=== PATIENT | female | born 1940 | race Caucasian/White ===

== ENCOUNTER 2016-05-20 12:33 | Emergency (ER) | payer MEDICARE, BC ==
[2016-05-20] MEDS ORDERED: ALTEPLASE IV ONE (12:54)
[2016-05-20] MEDS ORDERED: ALTEPLASE IVPB ONE (12:54)
[2016-05-20 13:02] LABS: Hematocrit 44 % (35-47); Hemoglobin 14.3 g/dl (12.0-16.0); Mean Corpuscular HGB Conc 33 g/dl (31-36); Mean Corpuscular Hemoglobin 28 pg (27-31); Mean Corpuscular Volume 87 fL (80-97); Mean Platelet Volume 9 um3 (7.4-10.4); Red Blood Count 5.05 10^6/ul (4.0-5.4); Red Cell Distribution Width 16 % (10.5-15); White Blood Count 7.4 10^3/ul (3.5-10.8)
--- NOTE | 2016-05-20 13:04 | RAD ---
HISTORY: Neurological changes, code escobar COMPARISONS: MRI dated January 02, 2016 TECHNIQUE: Multiple contiguous axial CT scans were obtained of the head without intravenous contrast. FINDINGS: HEMORRHAGE/INFARCT: There is no hemorrhage or acute infarct. MASSES/SHIFT: There is no parenchymal mass or shift. EXTRA-AXIAL SPACES: There is an extra axial mass along the left cerebral hemisphere consistent with meningioma. This can be identified on the previous examination and is stable. There is no significant mass effect. SULCI AND VENTRICLES: The sulci and ventricles are normal in size and position for the patient's stated age. CEREBRUM: There is hypoattenuation of the periventricular and subcortical white matter. There is encephalomalacia of the right frontal lobe consistent with remote infarct. There is a smaller area of encephalomalacia of the left frontal lobe consistent with remote. BRAINSTEM: There are no focal parenchymal abnormalities. CEREBELLUM: There are no focal parenchymal abnormalities. VESSELS: There is increased density of the left internal carotid artery compared to the right. PARANASAL SINUSES: The paranasal sinuses are clear. ORBITS: The orbits are unremarkable. BONES AND SOFT TISSUE: No bone or soft tissue abnormalities are noted. OTHER: None IMPRESSION: 1. THERE IS INCREASED DENSITY OF THE LEFT ICA WHICH MAY REFLECT THROMBOSIS. 2. CHRONIC SMALL VESSEL ISCHEMIC CHANGES. 3. MULTIFOCAL ENCEPHALOMALACIA CONSISTENT WITH REMOTE INFARCT. 4. STABLE LEFT POSTERIOR FOSSA MENINGIOMA. 5. PRELIMINARY FINDINGS WERE DISCUSSED WITH DR. FUNK IN THE EMERGENCY DEPARTMENT AT APPROXIMATELY 1 P.M. ON MAY 12, 2016.
[2016-05-20 13:21] LABS: Urine Bilirubin Negative (Negative); Urine Glucose Negative (Negative); Urine Nitrite Negative (Negative)
[2016-05-20 13:26] LABS: Albumin 4.2 g/dL (3.2-5.2); BUN/Creatinine Ratio 28.7 (8-20); Calcium 9.3 mg/dL (8.6-10.3); EGFR African American 81.6 (>60); EGFR Non-African American 63.5 (>60); Globulin 2.5 g/dL (2-4); HDL Cholesterol 74.1 mg/dL; Potassium 4.2 mmol/L (3.5-5.0); Total Bilirubin 0.4 mg/dL (0.2-1.0); Total Protein 6.7 g/dL (6.4-8.9)
[2016-05-20] MEDS ORDERED: Iohexol 350* (CONTRAST) 500 ML MDV IV ONE (13:29)
--- NOTE | 2016-05-20 13:40 | RAD ---
INDICATION: Code laboy COMPARISON: December 31, 2015 TECHNIQUE: An AP portable view obtained at 1315 hours is submitted. FINDINGS: Bones/Soft Tissues: There are no acute bony findings. There is a scoliotic deformity Cardiomediastinal: The cardiomediastinal silhouette is normal. Lungs: There are no infiltrates. Pleura: There are no pleural effusions. Other: None IMPRESSION: NO ACTIVE DISEASE.
[2016-05-20] MEDS ORDERED: NS 0.9% 500 ML BAG* 500 ML IV SCH (14:00)
[2016-05-20] MEDS ORDERED: NS 0.9% 500 ML BAG* 500 ML IV ONE ×2 (14:00)
--- NOTE | 2016-05-20 14:22 | RAD ---
HISTORY: Aphasia COMPARISONS: Head CT dated May 20 2016, CTA dated June 17, 2011 TECHNIQUE: Multiple contiguous axial CT scans were obtained of the head and neck After the administration of nonionic intravenous contrast timed to the systemic arterial phase of contrast enhancement. Coronal and sagittal multiplanar reformations are submitted for review. Multiple 3-D maximum intensity projection reconstructions are also submitted for review. FINDINGS: CTA NECK: AORTIC ARCH: The left vertebral artery is from the aortic arch. There is no ostial or proximal stenosis of the cephalic great vessels. RIGHT VERTEBRAL ARTERY: The right vertebral artery is patent along its course, without stenosis. LEFT VERTEBRAL ARTERY: The left vertebral artery is patent along its course, without stenosis. DOMINANCE: The right vertebral artery is dominant. RIGHT COMMON CAROTID ARTERY: The right common carotid artery is patent. The right carotid bifurcation occurs at C5-C6 RIGHT INTERNAL CAROTID ARTERY: There is no right internal carotid artery stenosis by NASCET criteria. RIGHT EXTERNAL CAROTID ARTERY: The right external carotid artery is unremarkable. LEFT COMMON CAROTID ARTERY: The left common carotid artery is patent. The left carotid bifurcation occurs at C 67 LEFT INTERNAL CAROTID ARTERY: There is no left internal carotid artery stenosis by NASCET criteria. The suspected left ICA stenosis noted on CT is not evident on the current contrast enhanced examination. LEFT EXTERNAL CAROTID ARTERY: The left external carotid artery is unremarkable. VENOUS CIRCULATION: The venous system is unremarkable. SALIVARY GLANDS: The parotid glands, submandibular glands, sublingual glands are normal. NASAL CAVITY/NASOPHARYNX: The nasal cavity and nasopharynx are normal. ORAL CAVITY/OROPHARYNX: The oral cavity is obscured by streak artifact from dental amalgam. The visualized oral cavity and oropharynx are unremarkable. LARYNGEAL APPARATUS/HYPOPHARYNX: The laryngeal apparatus and hypopharynx are normal. UPPER AIRWAY/UPPER ESOPHAGUS: The visualized upper airway and esophagus are normal. LUNG APICES: The lung apices are clear. THYROID GLAND: The thyroid gland is normal. LYMPH NODES: There is no lymphadenopathy by size criteria. BONES AND SOFT TISSUES: Degenerative changes are noted of the spine CTA HEAD: INTRACRANIAL CIRCULATION: There is no aneurysm, vascular malformation, occlusion, or stenosis of the visualized intracranial circulation. The anterior communicating artery complex is clear. Bilateral posterior communicating arteries are identified. The anterior communicating artery complex is dominant over the A1 segment of the right anterior cerebral artery. VENOUS CIRCULATION: The venous system is unremarkable. PERFUSION: There is no obvious parenchymal perfusion deficit. HEMORRHAGE/INFARCT: There is no hemorrhage or acute infarct. MASSES/SHIFT: There is no mass or shift. EXTRA-AXIAL SPACES: There are no extra-axial fluid collections. SULCI AND VENTRICLES: The sulci and ventricles are normal in size and position for the patient's stated age. CEREBRUM: Again noted are remote infarcts of the right frontal lobe and left frontal lobe with chronic small vessel ischemic changes. BRAINSTEM: There are no focal parenchymal abnormalities. CEREBELLUM: There are no focal parenchymal abnormalities. PARANASAL SINUSES: The paranasal sinuses are clear. ORBITS: The orbits are unremarkable. BONES AND SOFT TISSUE: No bone or soft tissue abnormalities are noted. OTHER: There is no abnormal enhancement. IMPRESSION: 1. NO INTERNAL CAROTID ARTERY STENOSIS BY NASCET CRITERIA. 2. NO ANEURYSM, VASCULAR MALFORMATION, OCCLUSION, OR STENOSIS OF THE VISUALIZED INTRACRANIAL CIRCULATION.. 3. AGAIN NOTED ARE CHRONIC ISCHEMIC CHANGES AND REMOTE INFARCTS CPT II Codes: 3100F
--- NOTE | 2016-05-20 15:32 | ED ---
Alejandro Walls Adam, scribed for Shaun Funk MD on 05/20/16 at 1304 . Neurological HPI - HPI Summary HPI Summary: Pt is a 76 year old female presenting with AMS. The pt is alert but aphasic and unable to follow commands. According to EMS the pt was found to be having noticeable cognitive changes at 11:00 this morning. They planned to take her to her PCP but the symptoms grew worse so they called EMS. The pt has difficulty following directions and finding words. She seems to indicate that she does have a typical migraine right now of which she has a Hx. She also has positive Hx of CVA and seizure. - History of Current Complaint Chief Complaint: EDNeurologicalDeficit Stated Complaint: AMS Time Seen by Provider: 05/20/16 12:35 Hx Obtained From: EMS Hx From Patient Unobtainable Due To: Altered Mental Status - Level 5 Caveat due to AMS Onset/Duration: Sudden Onset, Started hours ago, Still Present Timing: Constant Onset Severity: Moderate Current Severity: Moderate Neurological Deficit Location: E, [facility] Character: Impaired Speech, Confusion Aggravating: Unknown Alleviating: Nothing Associated Signs and Symptoms: Positive: AMS - Additional Pertinent History Primary Care Physician: [id number] - Allergy/Home Medications Allergies/Adverse Reactions: Allergies Allergy/AdvReac Type Severity Reaction Status Date / Time Koroma Flavor Allergy Unknown MIGRAINES Verified 05/20/16 13:06 Chocolate Allergy Unknown MIGRAINES Verified 05/20/16 13:06 Cinnamon Allergy Unknown MIGRAINES Verified 05/20/16 13:06 Eggs or Egg-derived Products Allergy Unknown MIGRAINES Verified 05/20/16 13:06 Erythromycin Allergy Unknown MIGRAINES Verified 05/20/16 13:06 Meperidine [From Demerol HCl] Allergy Unknown MIGRAINES Verified 05/20/16 13:06 Raloxifene [From Evista] Allergy Unknown MIGRAINES Verified 05/20/16 13:06 Sulfa Drugs Allergy Unknown MIGRAINES Verified 05/20/16 13:06 Tomato Allergy Unknown Headache Verified 05/20/16 13:06 almond Allergy Unknown Headache Uncoded 05/20/16 13:06 FOOD IN CASINGS (ex : Allergy Unknown MIGRAINES Uncoded 05/20/16 13:06 sausage) Home Medications: Home Medications Aspirin EC Low Dose* [Ecotrin EC Low Dose 81 MG*] 81 mg PO DAILY 05/20/16 [ History Confirmed 05/20/16] Clobetasol Propionate 0.05 % TOPICAL BID PRN 05/20/16 [History Confirmed ] Divalproex Sodium [Depakote] 250 mg PO BEDTIME 05/20/16 [History Confirmed 05/20] Glonoinum 30 3 cap PO DAILY PRN 05/20/16 [History Confirmed 05/20/16] Glucosamine Sulfate 1,500 mg PO QAM 05/20/16 [History Confirmed 05/20/16] HYDROmorphone SUPP* [Dilaudid SUPP*] 3 mg AR Q6HR PRN 05/20/16 [History Confirmed 05/20/16] Hydrocortisone (Rectal) [Proctozone-Hc] 2.5 % AR BID PRN 05/20/16 [History Confirmed 05/20/16] Ibuprofen TAB* [Advil TAB*] 400 mg PO Q4HR PRN 05/20/16 [History Confirmed 05/20] Levothyroxine TAB* [Synthroid TAB*] 50 mcg PO DAILY 05/20/16 [History Confirmed 05/20/16] Magnesium Citrate (mg Suppleme [Magnesium Citrate] 150 mg PO BEDTIME 05/20/16 [ History Confirmed 05/20/16] Ondansetron ODT TAB* [Zofran 4 MG Odt TAB*] 4 mg PO Q2HR PRN MDD 8 mg 05/20/16 [ History Confirmed 05/20/16] Prasterone (Dhea) [Dhea] 10 mg PO DAILY 05/20/16 [History Confirmed 05/20/16] Verapamil TAB* [Calan TAB*] 120 mg PO DAILY 05/20/16 [History Confirmed 05/20/16 ] predniSONE TAB* [Deltasone TAB*] 20 mg PO DAILY 05/20/16 [History Confirmed ] PMH/Surg Hx/FS Hx/Imm Hx Endocrine/Hematology History: Reports: Hx Thyroid Disease - hypothyroid Denies: Hx Anticoagulant Therapy, Hx Blood Disorders, Hx Blood Transfusions, Hx Bone Marrow Disease, Hx Diabetes, Hx Systemic Lupus Erythematosus, Hx Sickle Cell Disease, Hx Anemia, Hx Unexplained Bleeding, Other Endocrine/Hematological Disorders Cardiovascular History: Denies: Hx Hypertension, Hx Pacemaker/ICD, Other Cardiovascular Problems/ Disorders Respiratory History: Reports: Hx Asthma - exercise induced, Hx Seasonal Allergies - box elder, white birch Denies: Hx Chronic Bronchitis, Hx Chronic Obstructive Pulmonary Disease (COPD ), Hx Cystic Fibrosis, Hx Lung Cancer, Hx Pleural Effusion, Hx Pneumonia, Hx Pulmonary Edema, Hx Pulmonary Embolism, Hx Sleep Apnea, Other Respiratory Problems/Disorders GI History: Reports: Hx Gastroesophageal Reflux Disease Denies: Other GI Disorders History: Denies: Hx Dialysis, Hx Renal Disease, Other Problems/Disorders Musculoskeletal History: Reports: Hx Back Problems - occasional, comes and goes. , Hx Orthopedic Injury - Sx left knee 1979, Hx Osteoporosis, Hx Scoliosis, Other Musculoskeletal History - knee sx Denies: Hx Arthritis, Hx Rheumatoid Arthritis, Hx Bursitis, Hx Congenital Bone Abnormalities, Hx Fibromyalgia, Hx Gout, Hx Tendonitis Sensory History: Reports: Hx Cataracts - Sx on both eyes corrected it., Hx Contacts or Glasses - Doesn't have them with her, though, Hx Macular Degeneration Denies: Hx Eye Injury, Hx Eye Prosthesis, Hx Glaucoma, Hx Vision Problem, Hx Deafness, Hx Hearing Aid, Hx Hearing Problem, Other Sensory Impairments Opthamlomology History: Reports: Hx Cataracts - Sx on both eyes corrected it., Hx Contacts or Glasses - Doesn't have them with her, though, Hx Macular Degeneration Denies: Hx Eye Injury, Hx Eye Prosthesis, Hx Glaucoma, Hx Vision Problem, Other Sensory Impairments Neurological History: Reports: Hx Migraine, Hx Transient Ischemic Attacks (TIA) , Other Neuro Impairments/Disorders - MIGRAINES Denies: Hx Dementia, Hx Developmental Delay, Hx Headaches, Hx Seizures, Hx Spinal Cord Injury Psychiatric History: Reports: Hx Depression - brief, 10-20 years ago Denies: Hx Anxiety, Hx Attention Deficit Hyperactivity Disorder, Hx Eating Disorder, Hx Panic Disorder, Hx Post Traumatic Stress Disorder, Hx Inpatient Treatment, Hx Community Mental Health Tx, Hx Schizophrenia, Hx Bipolar Disorder , Hx Suicide Attempt, Hx Substance Abuse, Other Psychiatric Issues/Disorders - Cancer History Cancer Type, Location and Year: SKIN CA, migraines - Surgical History Surgery Procedure, Year, and Place: bladder . twisted fallopian tube surgery 1966. left knee 1979. cataract -2008. melonoma removed -left arm- 2011. HEMORROIDECTOMY -1997 Hx Anesthesia Reactions: No Infectious Disease History: No Infectious Disease History: Denies: Hx Tuberculosis, History Other Infectious Disease, Traveled Outside the [place] in Last 30 Days - Family History Known Family History: Positive: Other Family History: No FHx breast cancer. No FHx osteoarthritis. - Social History Occupation: Retired Lives: With Family - Alcohol Use: None Hx Substance Use: No Substance Use Type: Reports: None Hx Tobacco Use: No Smoking Status (MU): Never Smoked Tobacco Review of Systems Negative: Fever Neurological: Other - AMS, difficulty following directions and finding words Positive: Headache All Other Systems Reviewed And Are Negative: Yes - Comments Additional Review of Systems Comments: Level 5 Caveat due to AMS Physical Exam Triage Information Reviewed: Yes Vital Signs On Initial Exam: Initial Vitals Temp Pulse Resp BP Pulse Ox 98.1 F 57 14 117/47 98 05/20/16 12:52 05/20/16 12:52 05/20/16 12:52 05/20/16 12:52 05/20/16 12:52 Vital Signs Reviewed: Yes Completion Of Physical Exam Limited Due To: Level 5 - AMS Appearance: Positive: Well-Appearing, No Pain Distress Skin: Positive: Warm, Skin Color Reflects Adequate Perfusion, Dry Head/Face: Positive: Normal Head/Face Inspection Eyes: Positive: EOMI, YOEL ENT: Positive: Normal ENT inspection Neck: Positive: Supple, Nontender Respiratory/Lung Sounds: Positive: Clear to Auscultation, Breath Sounds Present Cardiovascular: Positive: RRR Abdomen Description: Positive: Nontender, Soft Bowel Sounds: Positive: Present Musculoskeletal: Positive: Normal, Strength/ROM Intact Neurological: Positive: Other - Severe aphasia. See NIH stroke scale. Psychiatric: Positive: Affect/Mood Appropriate Diagnostics - Vital Signs Vital Signs Temp Pulse Resp BP Pulse Ox 05/20/16 12:52 98.1 F 57 14 117/47 98 - Laboratory Lab Results: Lab Results 05/20/16 05/20/16 05/20/16 Range/Units 12:57 12:57 12:57 WBC 7.4 (3.5-10.8) 10^3/ul RBC 5.05 (4.0-5.4) 10^6/ul Hgb 14.3 (12.0-16.0) g/dl Hct 44 (35-47) % MCV 87 (80-97) fL MCH 28 (27-31) pg MCHC 33 (31-36) g/dl RDW 16 H (10.5-15) % Plt Count 213 (150-450) 10^3/ul MPV 9 (7.4-10.4) um3 Neut % (Auto) 42.7 (38-83) % Lymph % (Auto) 47.1 H (25-47) % [place] % (Auto) 8.4 (1-9) % Eos % (Auto) 1.4 (0-6) % Baso % (Auto) 0.4 (0-2) % Absolute Neuts (auto) 3.1 (1.5-7.7) 10^3/ul Absolute Lymphs (auto) 3.5 (1.0-4.8) 10^3/ul Absolute Monos (auto) 0.6 (0-0.8) 10^3/ul Absolute Eos (auto) 0.1 (0-0.6) 10^3/ul Absolute Basos (auto) 0 (0-0.2) 10^3/ul Absolute Nucleated RBC 0.01 10^3/ul Nucleated RBC % 0.1 INR (Anticoag Therapy) 0.87 L (0.89-1.11) APTT 29.3 (26.0-36.3) seconds Sodium 137 (133-145) mmol/L Potassium 4.2 (3.5-5.0) mmol/L Chloride 104 (101-111) mmol/L Carbon Dioxide 27 (22-32) mmol/L Anion Gap 6 (2-11) mmol/L BUN 25 H (6-24) mg/dL Creatinine 0.87 (0.51-0.95) mg/dL Est GFR ( Amer) 81.6 (>60) Est GFR (Non-Af Amer) 63.5 (>60) BUN/Creatinine Ratio 28.7 H (8-20) Glucose 89 (70-100) mg/dL Lactic Acid (0.5-2.0) mmol/L Calcium 9.3 (8.6-10.3) mg/dL Total Bilirubin 0.40 (0.2-1.0) mg/dL AST 21 (13-39) U/L ALT 18 (7-52) U/L Alkaline Phosphatase 64 (34-104) U/L Troponin I 0.00 (<0.04) ng/mL Total Protein 6.7 (6.4-8.9) g/dL Albumin 4.2 (3.2-5.2) g/dL Globulin 2.5 (2-4) g/dL Albumin/Globulin Ratio 1.7 (1-3) Triglycerides 143 mg/dL Cholesterol 213 mg/dL LDL Cholesterol 110 mg/dL HDL Cholesterol 74.1 mg/dL Urine Color Urine Appearance Urine pH (5-9) Ur Specific [place] (1.010-1.030) Urine Protein (Negative) Urine Ketones (Negative) Urine Blood (Negative) Urine Nitrate (Negative) Urine Bilirubin (Negative) Urine Urobilinogen (Negative) Ur Leukocyte Esterase (Negative) Urine Glucose (Negative) Urine Ascorbic Acid (Negative) Valproic Acid 29.0 L (50-100) mcg/mL Blood Type Antibody Screen 05/20/16 05/20/16 05/20/16 Range/Units 12:57 12:57 13:00 WBC (3.5-10.8) 10^3/ul RBC (4.0-5.4) 10^6/ul Hgb (12.0-16.0) g/dl Hct (35-47) % MCV (80-97) fL MCH (27-31) pg MCHC (31-36) g/dl RDW (10.5-15) % Plt Count (150-450) 10^3/ul MPV (7.4-10.4) um3 Neut % (Auto) (38-83) % Lymph % (Auto) (25-47) % [place] % (Auto) (1-9) % Eos % (Auto) (0-6) % Baso % (Auto) (0-2) % Absolute Neuts (auto) (1.5-7.7) 10^3/ul Absolute Lymphs (auto) (1.0-4.8) 10^3/ul Absolute Monos (auto) (0-0.8) 10^3/ul Absolute Eos (auto) (0-0.6) 10^3/ul Absolute Basos (auto) (0-0.2) 10^3/ul Absolute Nucleated RBC 10^3/ul Nucleated RBC % INR (Anticoag Therapy) (0.89-1.11) APTT (26.0-36.3) seconds Sodium (133-145) mmol/L Potassium (3.5-5.0) mmol/L Chloride (101-111) mmol/L Carbon Dioxide (22-32) mmol/L Anion Gap (2-11) mmol/L BUN (6-24) mg/dL Creatinine (0.51-0.95) mg/dL Est GFR ( Amer) (>60) Est GFR (Non-Af Amer) (>60) BUN/Creatinine Ratio (8-20) Glucose (70-100) mg/dL Lactic Acid 1.2 (0.5-2.0) mmol/L Calcium (8.6-10.3) mg/dL Total Bilirubin (0.2-1.0) mg/dL AST (13-39) U/L ALT (7-52) U/L Alkaline Phosphatase (34-104) U/L Troponin I (<0.04) ng/mL Total Protein (6.4-8.9) g/dL Albumin (3.2-5.2) g/dL Globulin (2-4) g/dL Albumin/Globulin Ratio (1-3) Triglycerides mg/dL Cholesterol mg/dL LDL Cholesterol mg/dL HDL Cholesterol mg/dL Urine Color Tabitha Urine Appearance Cloudy Urine pH 7.0 (5-9) Ur Specific [place] 1.018 (1.010-1.030) Urine Protein Negative (Negative) Urine Ketones Negative (Negative) Urine Blood Negative (Negative) Urine Nitrate Negative (Negative) Urine Bilirubin Negative (Negative) Urine Urobilinogen Negative (Negative) Ur Leukocyte Esterase Negative (Negative) Urine Glucose Negative (Negative) Urine Ascorbic Acid * H (Negative) Valproic Acid (50-100) mcg/mL Blood Type O Negative Antibody Screen Negative Result Diagrams: 05/20/16 12:57 05/20/16 12:57 Lab Statement: Any lab studies that have been ordered have been reviewed, and results considered in the medical decision making process. - Radiology CXR Radiology Interpretation Completed By: Radiologist - IMPRESSION: NO ACTIVE DISEASE. - CT BRAIN CT Interpretation Completed By: Radiologist - IMPRESSION: 1. THERE IS INCREASED DENSITY OF THE LEFT ICA WHICH MAY REFLECT THROMBOSIS. 2. CHRONIC SMALL VESSEL ISCHEMIC CHANGES. 3. MULTIFOCAL ENCEPHALOMALACIA CONSISTENT WITH REMOTE INFARCT. 4. STABLE LEFT POSTERIOR FOSSA MENINGIOMA. 5. PRELIMINARY FINDINGS WERE DISCUSSED WITH DR. FUNK IN THE EMERGENCY DEPARTMENT AT APPROXIMATELY 1 P.M. ON MAY 12, 2016. HEAD CTA CT Interpretation Completed By: Radiologist - IMPRESSION: 1. NO INTERNAL CAROTID ARTERY STENOSIS BY NASCET CRITERIA. 2. NO ANEURYSM, VASCULAR MALFORMATION, OCCLUSION, OR STENOSIS OF THE VISUALIZED INTRACRANIAL CIRCULATION.. 3. AGAIN NOTED ARE CHRONIC ISCHEMIC CHANGES AND REMOTE INFARCTS - EKG 12:49 Cardiac Rate: Bradycardia - 58 BPM EKG Rhythm: Sinus Bradycardia Ectopy: None EKG Interpretation: Minimal ST depressions in the lateral leads. - Additional Comments Diagnostic Additional Comments: Troponin I - 0.00 NIH Scale - NIH Scale Level of Consciousness: Alert/Keenly Responsive Ask Patient the Month and His/Her Age: Neither Correct/Aphasic Ask Pt to Open/Close Eyes and Optical Element Coater/Release Non-Paretic Hand: Both Correctly Best Gaze (Only Horizontal Eye Movement): Normal Facial Paresis-Pt to Smile & Close Eyes or Grimace Symmetry: Normal/Symmetrical Motor Function - Right Arm: No Drift-Holds 10 Seconds Motor Function - Left Arm: Drifts LT 10 seconds Motor Function - Right Leg: No Drift-Holds 10 Seconds Motor Function - Left Leg: Drifts LT 10 seconds Best Language (Describe Picture, Name Items): Severe Aphasia Dysarthria (Read Several Words): Slurs Some Words Extinction and Inattention: No Abnormality NIH Stroke Scale Comment: Ability to complete examination limited by patient's severe aphasia and inability to follow commands. Course/Dx - Course Course Of Treatment: Marvin laboy called at 12:35. Assessment/Plan: IMPROVED IN ED. DR REYES, NEUROLOGY, SAW PATIENT IN ED. PATIENT NOT A TPA CANDIDATE. DISCUSSED WITH DR REYES, DR CAROLYN DEAN, PATIENT AND . DISCHARGE HOME STABLE. PATIENT CLOSE TO BASELINE FUNCTION AT STABLE DISCHARGE HOME. - Diagnoses Provider Diagnoses: Altered mental state - Physician Notifications Discussed Care of Patient With: Dr. Reyes (Neuro) at 12:39. He said TPA may be indicated. He will be here in [address] Reyes (Neuro) at 13:10. After obtaining a more complete history from the patient's , he has discovered that the pt has been having similar symptoms intermittently for the past month. Therefore this does not represent acute onset and TPA is not indicated. Discharge - Discharge Plan Condition: Stable Disposition: HOME Patient Education Materials: Altered Mental Status (ED) Referrals: Carolyn Dean MD [Primary Care Provider] - Additional Instructions: FOLLOW UP WITH DR CAROLYN DEAN, [phone]. THE NEUROLOGIST DID NOT RECOMMEND STARTING PREDNISONE. RETURN TO THE EMERGENCY DEPARTMENT FOR ANY WORSENING OF YOUR CONDITION OR QUESTIONS OR CONCERNS. The documentation as recorded by the Alejandro kuo Adam accurately reflects the service I personally performed and the decisions made by me, Shaun Funk MD.
--- NOTE | 2016-05-20 15:33 | CONS ---
ADDENDUM NOW INCLUDED ON THIS REPORT CONSULTATION REPORT: DATE OF CONSULT: 05/20/16 - EMERGENCY DEPT PATIENT OF: Dr. Joseph, Dr. Arriaga, and Dr. Ortiz. HISTORY OF PRESENT ILLNESS: This is a 75-year-old right-handed woman, who I am asked to evaluate for possible acute stroke. She was hospitalized recently in December with what was thought to be a migrainous stroke and had confusion but fluent language. She has spoken to Dr. Joseph on the phone, somewhat confused since. Her states that she has been significantly more confused in the past month. At times she does not remember her name and she cannot keep a drum drier calendar at all since then. She was able to recall her 's name at 10 o' clock and then he went away. When he came back at 11, she could not remember his name and appeared to be more confused. There was no apparent weakness or numbness. Currently now she can say she knows his name but is confused to where he is at and so this still represents somewhat of a decline for her, but she does have significant fluctuation. Again, there was no weakness or numbness or headache with this. PAST MEDICAL HISTORY: Medical problems include: 1. Hypokalemia. 2. Hypothyroidism. 3. Migraine headaches. 4. Stroke. 5. Cardiac arrhythmias consisting of PACs and PVCs. MEDICATIONS: At home as per summary includes: 1. Depakote 500 mg at bedtime, but this may have been changed recently in the past week or two, and she may have had more headache since. 2. She is also on Dilaudid 2 tabs p.r.n. 3. Synthroid 50 mcg a day. 4. Magnesium citrate 2 tabs at bedtime. 5. Ubiquinol 100 mg q.a.m. She had been started on verapamil but apparently that has not been continued. ALLERGIES: Numerous food products as well as MEPERIDINE and SULFA drugs. FAMILY HISTORY: Noncontributory. REVIEW OF SYSTEMS: She has had some increased intention tremor but otherwise review of systems is negative other than the HPI in all 14 spheres. PHYSICAL EXAM: Temperature 98.1, pulse 64, respirations 21. Blood pressure was initially 117/47, now 121/92. She was alert. She knew her name. She did not know her 's name initially but then after being present she could remember it, she spoke in fluent sentences. She did not know where she was, her age, her doctor. Memory was 0/3 at 5 minutes. Cranial nerves II through XII were intact. There was no facial weakness. Strength showed normal tone which is 5/5. Symmetrically reflexes were 1 and equal. Toes were equivocal to downgoing. Sensation grossly intact to light touch. Chest : Clear. Cardiovascular: Regular rate and rhythm. Abdomen: Soft. Positive bowel sounds. DIAGNOSTIC STUDIES/LAB DATA: Her CT scan was reviewed and compared to prior scans, it showed chronic small vessel ischemic changes, multifocal areas of encephalomalacia consistent with past stroke, stable left posterior fossa meningioma and increased density left ICA which may reflect thrombosis. She did have a carotid Doppler in December which showed some no significant stenosis. Her MRI scan showed tiny left frontal lobe infarct and moderate-to- severe chronic small vessel ischemic changes as well as meningioma. Labs are pending. IMPRESSION: Jeanine's history is complex. She has had a tiny stroke back in December but more recently she has had increasing confusion. Possibly this is an acute change for the past month according to her , although Dr. Joseph is concerned that his history may not be entirely accurate. She knows that there has been cognitive problems for even longer, but it is unclear whether there has been an acute change. Today, there has been apparently a superimposed change but her speech is fluent and her word-finding difficulties are compatible with her degree of overall confusion rather than without any clear focal symptoms. I am not sure that she has had a stroke now, it is similar to symptoms that she has had in the past month that have apparently been changed and therefore, she would not be a candidate per TPA since this overall process has been going on for a month with fluctuation and her feels that she now recalling his name and is doing better now. Given her findings of her left carotid density, we are checking a CTA. If she comes back to her baseline, she may have an episode of short-term memory loss such as a transient global amnesia in the setting of overall confusion without headache. Currently I would hesitate to call this migrainous symptomatology, although she has had apparently migrainous symptoms similar to this. Her blood pressure was initially on the lower side, so we are giving her a gentle bolus of fluids. I will continue to follow with the ER doctor and decide on disposition in the near future. Thank you for sharing her case. ADDENDUM: DATE OF CONSULTATION: 05/20/16 I have spoken to Dr. Arriaga. The patient is back to her baseline according to her and has baseline confusion, but knows her address and family members' names. There has been no headache today. I would defer to Dr. Ortiz and Dr. Joseph for long-term management but without headache and with these symptoms, I would not personally put on a course of steroids. Followup will be through Dr. Joseph and Dr. Ortiz. I am concerned; however, given her scans that she may be evolving into a vascular dementia. [id number]/[facility] #: [id number]/[facility] #: [id number] MTDWalker
[2016-05-20 16:04] VITALS: BP 123/91
--- NOTE | 2016-05-20 17:25 | CONS ---
CONSULTATION NOTE:* ADDENDUM: DATE OF CONSULTATION: 05/20/16 I have spoken to Dr. Arriaga. The patient is back to her baseline according to her and has baseline confusion, but knows her address and family members' names. There has been no headache today. I would defer to Dr. Ortiz and Dr. Joseph for long-term management but without headache and with these symptoms, I would not personally put on a course of steroids. Followup will be through Dr. Joseph and Dr. Ortiz. I am concerned; however, given her scans that she may be evolving into a vascular dementia. [id number]/[facility] #: [id number] MTDWalker
== END 2016-05-20 16:01 | disposition home or self-care (01) ==
LOC: ED 12:33
DX: R41.82 Altered mental status, unspecified (principal); G43.909 Migraine, unspecified, not intractable, without status migrainosus; Z86.73 Personal history of transient ischemic attack (TIA), and cerebral infarction without residual deficits
CPT/HCPCS: 36415; 70450; 70496; 70498; 71010; 80053; 80061; 80164; 81003; 83605; 84484; 85025; 85610; 85730; 86850; 86900; 86901; 93005; 99283; Q9967

== ENCOUNTER 2019-11-16 00:12 | Inpatient (IN) ==
[~2019-11-16 00:12] MED LIST: LORazepam 2 mg VIAL 1 ml IV PUSH ONE
[2019-11-16] MEDS ORDERED: NS 0.9% 1000 ml BAG 1,000 ML IV ONE ×2 (00:14→05:52)
[2019-11-16] MEDS ORDERED: Iodixanol (CONTRAST) 320 MG/ML 100 ML SDV IV ONE (00:23)
[2019-11-16] MEDS ORDERED: Lorazepam PYXIS KEY ONE (00:30)
[2019-11-16] MEDS ORDERED: LORazepam 2 mg VIAL 1 ml ONE (00:31)
[2019-11-16 00:42] LABS: ABS Eosinophils 0.1 10^3/ul (0-0.6); ABS Lymphocytes 3.7 10^3/ul (1.0-4.8); ABS Monocytes 0.6 10^3/ul (0-0.8); ABS Neutrophils 4.2 10^3/ul (1.5-7.7); Eosinophil % 1.1 %; Hematocrit 41 % (35-47); Hemoglobin 13.6 g/dL (12.0-16.0); Lymphocyte % 42.9 %; Mean Corpuscular HGB Conc 33 g/dL (31-36); Mean Corpuscular Hemoglobin 31 pg (27-31); Mean Corpuscular Volume 92 fL (80-97); Mean Platelet Volume 8.5 fL (7.4-10.4); Nucleated Red Blood Cells % 0.1; Platelet Count 239 10^3/uL (150-450); Red Blood Count 4.42 10^6 /uL (3.70-4.87); Red Cell Distribution Width 14 % (10-15); White Blood Count 8.6 10^3/uL (3.5-10.8)
[2019-11-16 00:55] LABS: Albumin 4.3 g/dL (3.2-5.2); BUN/Creatinine Ratio 28.4 (8-20); Calcium 8.5 mg/dL (8.6-10.3); EGFR African American 63.4 (>60); EGFR Non-African American 52.4 (>60); Globulin 2.2 g/dL (2-4); HDL Cholesterol 64.9 mg/dL; Potassium 3.6 mmol/L (3.5-5.0); Total Bilirubin 0.5 mg/dL (0.2-1.0); Total Protein 6.5 g/dL (6.4-8.9)
[2019-11-16 00:57] LABS: Troponin I 0.01 ng/mL (<0.03)
[2019-11-16] MEDS ORDERED: Ondansetron 4 mg VIAL 2 MG/ML 2 ml VIAL IV ONE (01:08)
[2019-11-16] MEDS ORDERED: Lorazepam PYXIS KEY PRN (01:37)
[2019-11-16 01:43] LABS: Activated Partial Thrombo Time 25.3 seconds (26.0-38.0); INR 0.98 (0.82-1.09)
[2019-11-16 03:09] LABS: Urine Appearance Clear; Urine Bilirubin Negative (Negative); Urine Blood Negative (Negative); Urine Color Straw; Urine Glucose 1+(50 mg/dL) (Negative); Urine Ketones Negative (Negative); Urine Nitrite Negative (Negative); Urine Protein Negative (Negative); Urine Specific Gravity 1.023 (1.010-1.030); Urine Urobilinogen Negative (Negative)
[2019-11-16] MEDS ORDERED: Metoclopramide 5 MG/ML VIAL (10 mg) IV SLOW PU ONE (03:17)
[2019-11-16 04:40] LABS: TSH Ultra Thyroid Stim Horm 1.31 mcIU/mL (0.34-5.60)
[2019-11-16] MEDS ORDERED: Vancomycin 1,000 MG in NS 0.9% 250 ml 250 ML IV ONE (04:43)
[2019-11-16] MEDS ORDERED: ACYCLOVIR IVPB ONE (04:43)
[2019-11-16] MEDS ORDERED: cefTRIAXone 2 GM ADDV.VIAL 2 GM in NS 0.9% 100 ml BAG 100 ML IVPB ONE (04:43)
[2019-11-16] MEDS ORDERED: NS 0.9% IVPB ONE (04:43)
[2019-11-16] MEDS ORDERED: Magnesium Sulfate IV 1GM/100ML 1 GM/100 ML BAG IV ONE (04:48)
[2019-11-16] MEDS ORDERED: Lactated Ringers 1000 ml BAG 1,000 ML IV SCH (05:00)
[2019-11-16] MEDS ORDERED: Lidocaine 1% VIAL 10 MG/ML VIAL ONE (05:44)
[2019-11-16] MEDS ORDERED: Vancomycin per Pharmacy 1 EA NOTE FOLLOW UP SCH (06:00)
[2019-11-16 07:04] LABS: Calcium 7.5 mg/dL (8.6-10.3); EGFR African American 71.4 (>60); Magnesium 1.9 mg/dL (1.9-2.7); Potassium 3.6 mmol/L (3.5-5.0)
[2019-11-16] MEDS: Heparin 5000 UNITS/ML 1 mL VIAL SUBCUT SCH ×3 (08:02→22:06)
[2019-11-16] MEDS: NS 0.9% 1000 ml BAG 1,000 ML IV SCH ×2 (08:22→17:28)
[2019-11-16 08:32] LABS: Hematocrit 37 % (35-47); Hemoglobin 12.8 g/dL (12.0-16.0); Mean Corpuscular HGB Conc 35 g/dL (31-36); Mean Corpuscular Hemoglobin 32 pg (27-31); Mean Corpuscular Volume 92 fL (80-97); Mean Platelet Volume 8.8 fL (7.4-10.4); Platelet Count 204 10^3/uL (150-450); Red Blood Count 4.01 10^6 /uL (3.70-4.87); Red Cell Distribution Width 14 % (10-15); White Blood Count 10.4 10^3/uL (3.5-10.8)
[2019-11-16 12:38] LABS: Body Fluid Source Cerebral Spinal
[2019-11-16 12:52] LABS: CSF Glucose 71 mg/dL (40-70)
[2019-11-16 13:26] LABS: Body Fluid Mono 9 %
[2019-11-16] MEDS: NS 0.9% IVPB SCH ×2 (15:51→23:39)
[2019-11-16] MEDS: ACYCLOVIR IVPB SCH ×2 (15:51→23:39)
[2019-11-16] MEDS: cefTRIAXone 2 GM ADDV.VIAL 2 GM in NS 0.9% 100 ml BAG 100 ML IV SCH (17:22)
[2019-11-16] MEDS ORDERED: Vancomycin 1000 MG in NS 0.9% 250 ML IVPB SCH (23:00)
[2019-11-17] MEDS: NS 0.9% 1000 ml BAG 1,000 ML IV SCH (04:59)
[2019-11-17] MEDS: cefTRIAXone 2 GM ADDV.VIAL 2 GM in NS 0.9% 100 ml BAG 100 ML IV SCH (05:02)
[2019-11-17] MEDS: Heparin 5000 UNITS/ML 1 mL VIAL SUBCUT SCH ×3 (05:02→22:44)
[2019-11-17 06:44] LABS: ABS Eosinophils 0.1 10^3/ul (0-0.6); ABS Lymphocytes 3.5 10^3/ul (1.0-4.8); ABS Monocytes 0.6 10^3/ul (0-0.8); ABS Neutrophils 2.8 10^3/ul (1.5-7.7); Eosinophil % 1.3 %; Hematocrit 33 % (35-47); Hemoglobin 11.5 g/dL (12.0-16.0); Lymphocyte % 50.3 %; Mean Corpuscular HGB Conc 35 g/dL (31-36); Mean Corpuscular Hemoglobin 32 pg (27-31); Mean Corpuscular Volume 91 fL (80-97); Mean Platelet Volume 8.7 fL (7.4-10.4); Nucleated Red Blood Cells % 0.2; Platelet Count 173 10^3/uL (150-450); Red Blood Count 3.64 10^6 /uL (3.70-4.87); Red Cell Distribution Width 14 % (10-15); White Blood Count 6.9 10^3/uL (3.5-10.8)
[2019-11-17 06:53] LABS: BUN/Creatinine Ratio 19.3 (8-20); Calcium 7.1 mg/dL (8.6-10.3); EGFR African American 80.4 (>60); EGFR Non-African American 66.5 (>60); Potassium 3.3 mmol/L (3.5-5.0)
[2019-11-17] MEDS ORDERED: Potassium Chlor 20 meq TAB.ER PO ONE (07:07)
[2019-11-17] MEDS: NS 0.9% w/ 40 Meq KCL 1000 ML 1,000 ML IV SCH ×2 (07:44→19:28)
[2019-11-17] MEDS: ACYCLOVIR IVPB SCH (09:09)
[2019-11-17] MEDS: NS 0.9% IVPB SCH (09:09)
[2019-11-17] MEDS ORDERED: NF:Mirabegron 50 mg ER TAB (NF) PO SCH (18:00)
[2019-11-17] MEDS ORDERED: Aspirin EC 81 mg TAB.EC (enteric coated) PO SCH (18:00)
[2019-11-17 20:39] LABS: HSV 1 PCR, CSF Negative (Negative); HSV 2 PCR, CSF Negative (Negative)
[2019-11-18] MEDS: Heparin 5000 UNITS/ML 1 mL VIAL SUBCUT SCH ×2 (05:21→16:00)
[2019-11-18 06:32] LABS: ABS Eosinophils 0.2 10^3/ul (0-0.6); ABS Lymphocytes 4.3 10^3/ul (1.0-4.8); ABS Monocytes 0.6 10^3/ul (0-0.8); ABS Neutrophils 2.9 10^3/ul (1.5-7.7); Eosinophil % 2.5 %; Hematocrit 36 % (35-47); Hemoglobin 12.5 g/dL (12.0-16.0); Lymphocyte % 53.3 %; Mean Corpuscular HGB Conc 35 g/dL (31-36); Mean Corpuscular Hemoglobin 32 pg (27-31); Mean Corpuscular Volume 92 fL (80-97); Mean Platelet Volume 9.2 fL (7.4-10.4); Platelet Count 196 10^3/uL (150-450); Red Blood Count 3.93 10^6 /uL (3.70-4.87); Red Cell Distribution Width 14 % (10-15); White Blood Count 8.1 10^3/uL (3.5-10.8)
[2019-11-18 06:53] LABS: BUN/Creatinine Ratio 8.6 (8-20); Calcium 8.1 mg/dL (8.6-10.3); EGFR African American 82.7 (>60); EGFR Non-African American 68.4 (>60); Potassium 3.8 mmol/L (3.5-5.0)
[2019-11-18] MEDS ORDERED: Cholecalciferol (VIT D3) 1,000 unit TAB PO SCH (09:00)
[2019-11-18] MEDS: NS 0.9% w/ 40 Meq KCL 1000 ML 1,000 ML IV SCH (10:13)
[2019-11-18] MEDS ORDERED: Vancomycin Trough Check NOTE FOLLOW UP ONE (11:00)
[2019-11-18 12:10] VITALS: BP 139/55
== END 2019-11-18 16:48 | disposition swing bed (61) | DRG 66 ==
LOC: ED 00:12 → MEDTELE 04:16
PROVIDERS: ADMIT Pediatrics; ATTEND Internal Medicine

== ENCOUNTER 2019-11-18 16:48 | Inpatient (IN) ==
[2019-11-18] MEDS ORDERED: Ondansetron ODT 4 mg TAB 4 MG TAB PO PRN (18:04)
[2019-11-18] MEDS: Aspirin EC 81 mg TAB.EC (enteric coated) PO SCH (18:21)
[2019-11-19] MEDS: Cholecalciferol (VIT D3) 1,000 unit TAB PO SCH (09:16)
[2019-11-19] MEDS: Aspirin EC 81 mg TAB.EC (enteric coated) PO SCH (17:14)
[2019-11-20] MEDS: Cholecalciferol (VIT D3) 1,000 unit TAB PO SCH (10:06)
[2019-11-20] MEDS: Aspirin EC 81 mg TAB.EC (enteric coated) PO SCH (16:53)
[2019-11-21 08:45] VITALS: BP 138/69
[2019-11-21] MEDS: Cholecalciferol (VIT D3) 1,000 unit TAB PO SCH (09:44)
== END 2019-11-21 13:41 | DRG 66 ==
LOC: MEDTELE 16:48
PROVIDERS: ADMIT Internal Medicine; ATTEND Internal Medicine